=== PATIENT | male | born 1990 | race Caucasian/White ===

== ENCOUNTER 2020-12-25 18:55 | Emergency (ER) | payer OTHER ==
[2020-12-25 20:35] LABS: Absolute Lymphocytes (CBC) 2.5 K/uL (0.7-4.9); Basophils % 0.5 % (0-1.3); Hematocrit 46.2 % (39.6-49.0); Lymphocytes % 36.9 % (15.3-44.8); MPV 6.8 fL (7.6-11.3); RBC Red Blood Cell Count 5.52 M/uL (4.33-5.43)
[2020-12-25 20:44] LABS: Protime INR 1.03
[2020-12-25 20:55] LABS: ALT/SGPT 43 U/L (12-78); AST/SGOT 20 U/L (15-37); Albumin 4.5 g/dL (3.4-5.0); Alkaline Phosphatase 54 U/L (45-117); BUN Blood Urea Nitrogen 10 mg/dL (7-18); Bicarbonate 29 mmol/L (21-32); Bilirubin Direct < 0.1 mg/dL (0-0.2); Bilirubin Total 0.4 mg/dL (0.2-1.0); Glucose Level 101 mg/dL (74-106); Potassium 4.1 mmol/L (3.5-5.1); Protein, Total 8.5 g/dL (6.4-8.2); Sodium Level 141 mmol/L (136-145)
[2020-12-25 21:22] LABS: Urine Blood Negative (Negative); Urine Glucose Negative (Negative); Urine Protein Negative (Negative); Urine Specific Gravity 1.025 (1.005-1.030); Urine pH 7.5 (5.0-7.0)
[2020-12-25 21:39] LABS: Barbiturates NEGATIVE (NEGATIVE); Benzodiazepines NEGATIVE (NEGATIVE); Cocaine NEGATIVE (NEGATIVE); METHAMPHETAM NEGATIVE (NEGATIVE); Methadone NEGATIVE (NEGATIVE); Opiates NEGATIVE (NEGATIVE); Phencyclidine NEGATIVE (NEGATIVE); THC Cannibis NEGATIVE (NEGATIVE)
--- NOTE | 2020-12-25 22:44 | EDPHYS ---
Physician Documentation [facility] Name: Lincoln Mcmillan Age: 30 yrs Sex: Male : 1990 Arrival Date: 12/25/2020 Time: 18:56 Bed 17 Private MD: ED Physician Jesu Ly HPI: 12/25 19:40 This 30 yrs old Male presents to ER via EMS with complaints of Psych Problem. mh7 19:40 The patient presents to the emergency department with depression, over a relationship, mh7 Issues with mother, Issues with someone at gym, States loss of coping skills. Onset: The symptoms/episode began/occurred 2 month(s) ago. Past psychiatric history: Prior diagnosis: depression, TBI, autism. Past psychiatric history: Psychiatric medications include: Haldol, Risperdal, citalopram, Primary psychiatric physician: the patient has not had a prior suicide gesture, the patient does not have a previous inpatient psychiatric history, the patient's last psychiatric treatment was none. Associated signs and symptoms: Pertinent negatives: abdominal pain, anxiety, chest pain, chills, delusions, fever, hallucinations, headache, homicidal ideation, nausea, night sweats, palpitations, paranoia, shortness of breath, substance abuse, suicide ideation, tremor, vomiting. Severity of symptoms: At their worst the symptoms were moderate 7 day(s) ago, in the emergency department the symptoms are unchanged. Patient states that he has had a decrease in coping skills when dealing with his mother and a woman at his gym who constantly tells him things that he is doing wrong. He reports some intermittent depression of the last 3 months. He denies any suicidal or homicidal ideation. He denies any auditory or visual hallucinations. He reports sleeping only a few hours per night over the last few weeks.. Historical: - Allergies: 19:08 No Known Allergies; ss - PMHx: 19:08 TBI; "autistic tendencies"; ss - PSHx: 19:08 L ankle; ss - Immunization history:: Client reports receiving the 2nd dose of the Covid vaccine. - Social history:: Smoking status: Patient denies any tobacco usage or history of. Patient/guardian denies using alcohol, street drugs. ROS: 19:40 Constitutional: Negative for fever, chills, and weight loss, Eyes: Negative for injury, mh7 pain, redness, and discharge, ENT: Negative for injury, pain, and discharge, Neck: Negative for injury, pain, and swelling, Cardiovascular: Negative for chest pain, palpitations, and edema, Respiratory: Negative for shortness of breath, cough, wheezing, and pleuritic chest pain, Abdomen/GI: Negative for abdominal pain, nausea, vomiting, diarrhea, and constipation, Back: Negative for injury and pain, : Negative for injury, bleeding, discharge, and swelling, MS/Extremity: Negative for injury and deformity, Skin: Negative for injury, rash, and discoloration, Neuro: Negative for headache, weakness, numbness, tingling, and seizure, Allergy/Immunology: Negative for hives, rash, and allergies, Endocrine: Negative for neck swelling, polydipsia, polyuria, polyphagia, and marked weight changes, Hematologic/Lymphatic: Negative for swollen nodes, abnormal bleeding, and unusual bruising. Exam: 19:40 Constitutional: This is a well developed, well nourished patient who is awake, alert, mh7 and in no acute distress. Head/Face: Normocephalic, atraumatic. Eyes: Pupils equal round and reactive to light, extra-ocular motions intact. Lids and lashes normal. Conjunctiva and sclera are non-icteric and not injected. Cornea within normal limits. Periorbital areas with no swelling, redness, or edema. Neck: Trachea midline, no thyromegaly or masses palpated, and no cervical lymphadenopathy. Supple, full range of motion without nuchal rigidity, or vertebral point tenderness. No Meningismus. Chest/axilla: Normal chest wall appearance and motion. Nontender with no deformity. No lesions are appreciated. Cardiovascular: Regular rate and rhythm with a normal S1 and S2. No gallops, murmurs, or rubs. Normal PMI, no JVD. No pulse deficits. Respiratory: Lungs have equal breath sounds bilaterally, clear to auscultation and percussion. No rales, rhonchi or wheezes noted. No increased work of breathing, no retractions or nasal flaring. Abdomen/GI: Soft, non-tender, with normal bowel sounds. No distension or tympany. No guarding or rebound. No evidence of tenderness throughout. Back: No spinal tenderness. No costovertebral tenderness. Full range of motion. Skin: Warm, dry with normal turgor. Normal color with no rashes, no lesions, and no evidence of cellulitis. MS/ Extremity: Pulses equal, no cyanosis. Neurovascular intact. Full, normal range of motion. Neuro: Awake and alert, GCS 15, oriented to person, place, time, and situation. Cranial nerves II-XII grossly intact. Motor strength 5/5 in all extremities. Sensory grossly intact. Cerebellar exam normal. Normal gait. 19:40 Psych: Behavior/mood is depressed, Affect is calm, Oriented to person, place, time, Patient has no thoughts/intents to harm self or others. Judgement / Insight is normal. Memory is normal. Delusions/hallucinations are not present. Vital Signs: 19:40 BP 124 / 86; Pulse 85; Resp 20; Temp 97.6; Pulse Ox 97% on R/A; Pain 0/10; dc2 20:45 BP 144 / 79; Pulse 77; Resp 17; Pulse Ox 99% on R/A; Pain 0/10; dc2 22:40 BP 119 / 76; Pulse 74; Resp 17; Pulse Ox 98% ; Pain 0/10; dc2 22:40 BP 129 / 82; Pulse 75; Resp 18; Temp 97.2; Pulse Ox 97% on R/A; Pain 0/10; dc2 Les Coma Score: 19:40 Eye Response: spontaneous(4). Verbal Response: oriented(5). Motor Response: obeys dc2 commands(6). Total: 15. MDM: 22:42 Differential diagnosis: depression, Substance abuse, adjustment disorder. Data [facility] reviewed: vital signs, nurses notes, lab test result(s), CBC, drug level(s), electrolytes, urinalysis, urine drug screen, EKG. Data interpreted: Pulse oximetry: on room air is 97 %. Interpretation: normal. Counseling: I had a detailed discussion with the patient and/or guardian regarding: the historical points, exam findings, and any diagnostic results supporting the discharge/admit diagnosis, lab results, the need for outpatient follow up, a psychiatrist, to return to the emergency department if symptoms worsen or persist or if there are any questions or concerns that arise at home. Response to treatment: the patient's symptoms have markedly improved after treatment. 22:44 Patient medically screened. [facility] 12/25 19:57 Order name: Acetaminophen; Complete Time: 21:40 7 12/25 19:57 Order name: Basic Metabolic Panel; Complete Time: 21:40 [facility] 12/25 19:57 Order name: CBC with Diff; Complete Time: 21:40 12/25 19:57 Order name: ETOH Level; Complete Time: 21:40 7 12/25 19:57 Order name: Hepatic Function; Complete Time: 21:40 [facility] 12/25 19:57 Order name: PT-INR; Complete Time: 21:40 [facility] 12/25 19:57 Order name: Ptt, Activated; Complete Time: 21:40 [facility] 12/25 19:57 Order name: Salicylate; Complete Time: 21:40 [facility] 12/25 19:57 Order name: Urine Drug Screen; Complete Time: 21:40 12/25 19:57 Order name: EKG; Complete Time: 19:59 [facility] 12/25 19:57 Order name: EKG - Nurse/Tech; Complete Time: 21:26 [facility] 12/25 19:57 Order name: IV Saline Lock; Complete Time: 21:15 [facility] 12/25 19:57 Order name: Labs collected and sent; Complete Time: 21:15 [facility] 12/25 21:21 Order name: Urine Dipstick-Ancillary; Complete Time: 21:40 [facility] 12/25 19:57 Order name: Urine Dipstick-Ancillary (obtain specimen); Complete Time: 22:31 [facility] Administered Medications: No medications were administered Disposition Summary: 12/25/20 22:44 Discharge Ordered Location: Home [facility] Problem: an ongoing problem [facility] Symptoms: have improved [facility] Condition: Stable [facility] Diagnosis - Depression [facility] Followup: [facility] - With: Private Physician - When: 1 - 2 days - Reason: Worsening of condition, Recheck today's complaints, Continuance of care, Re-evaluation by your physician Followup: [facility] - With: Ian Deng MD - When: 2 - 3 days - Reason: Worsening of condition, Recheck today's complaints Discharge Instructions: - Discharge Summary Sheet [facility] - Managing Depression, Adult [facility] Forms: - Medication Reconciliation Form [facility] - Thank You Letter 7 - Antibiotic Education [facility] - Prescription Opioid Use [facility] Signatures: Dispatcher [employer] EDKellee Huitron, PEE RN ss Jesu Ly, MD GREGORY mh7
--- NOTE | 2020-12-25 22:44 | ER ---
Nurse's Notes [facility] Name: Lincoln Mcmillan Age: 30 yrs Sex: Male : 1990 Arrival Date: 12/25/2020 Time: 18:56 Bed 17 Private MD: Diagnosis: Depression Presentation: 12/25 19:04 Chief complaint: EMS states: Called out to counseling center for upset individual. Pt ss states that he needs a break from his mother. Denies SI/HI at this time. States that he just wants to get help because he is unable to cope with day to day things. Pt states that it is not his mother's fault, her voice sometimes aggravates him. Coronavirus screen: Client denies travel out of the [place] in the last 14 days. Ebola Screen: Patient denies exposure to infectious person. Patient denies travel to an Ebola-affected area in the 21 days before illness onset. Ebola Screen: Patient denies exposure to infectious person. Patient denies travel to an Ebola-affected area in the 21 days before illness onset. Initial Sepsis Screen: Does the patient meet any 2 criteria? No. Patient's initial sepsis screen is negative. Does the patient have a suspected source of infection? No. Patient's initial sepsis screen is negative. Risk Assessment: Do you want to hurt yourself or someone else? Patient reports no desire to harm self or others. Onset of symptoms was December 25, 2020. 19:04 Method Of Arrival: EMS: [facility] 19:04 Acuity: SPRING 3 ss Historical: - Allergies: 19:08 No Known Allergies; ss - PMHx: 19:08 TBI; "autistic tendencies"; ss - PSHx: 19:08 L ankle; ss - Immunization history:: Client reports receiving the 2nd dose of the Covid vaccine. - Social history:: Smoking status: Patient denies any tobacco usage or history of. Patient/guardian denies using alcohol, street drugs. Screenin:40 Abuse screen: Denies threats or abuse. Denies injuries from another. Nutritional dc2 screening: No deficits noted. Tuberculosis screening: No symptoms or risk factors identified. Never had TB. Possible symptoms: None Risk factors: None. Fall Risk None identified. No fall in past 12 months (0 pts). No secondary diagnosis (0 pts). No IV (0 pts). Ambulatory Aid- None/Bed Rest/Nurse Assist (0 pts). Gait- Normal/Bed Rest/Wheelchair (0 pts) Mental Status- Oriented to own ability (0 pts). Total Edwards Fall Scale indicates No Risk (0-24 pts). Assessment: 19:10 Reassessment: 4 self inflicted superficial abrasions noted to L forearm. ss 19:40 Reassessment: Patient and/or family updated on plan of care and expected duration. Pain dc2 level reassessed. General: Appears in no apparent distress. well groomed, well developed, Behavior is calm, cooperative, Smells of Reports Pt is here because of losing coping skills that began about 3 months ago. has not slept in days .Denies pain. Pain: Denies pain. Neuro: No deficits noted. Respiratory: No deficits noted. GI: No deficits noted. Musculoskeletal: No deficits noted. 19:40 Derm: several superficial cuts to left forearm, no bleeding or redness. Pt stated he dc2 cut himself today . Denies SI or HI . Denies hallucinations. 20:40 Reassessment: No changes from previously documented assessment. dc2 21:40 Reassessment: No changes from previously documented assessment. Patient and/or family dc2 updated on plan of care and expected duration. Pain level reassessed. Patient denies pain at this time. 22:00 Reassessment: Patient appears in no apparent distress at this time. No changes from dc2 previously documented assessment. Patient and/or family updated on plan of care and expected duration. Pain level reassessed. 22:35 Reassessment: Reassessment: Pt speak to someone with psychiatry. has a number dc2 and is ready to leave the hosptital. Dr. Ly made aware. Psych: 19:51 [place] Suicide Severity Screening: In the past month, have you wished you were dc2 or wished you could go to sleep and not wake up? Patient responds "No." "In the past month, have you actually had any thoughts of killing yourself?" Patient responds "no." "In your lifetime, have you ever done anything, started to do anything, or prepared to do anything to end your life?" Patient responds "no.". Subjective: Patient's mood is calm cooperative and talkative. Objective: Patient is cooperative, Speech is normal. Interventions: Room cleared of all equipment and tubings. Safety Checks: Personal items have been removed. Door is open. Pt denies substance abuse. Commitment: Patient will be a voluntary commitment. Vital Signs: 19:40 BP 124 / 86; Pulse 85; Resp 20; Temp 97.6; Pulse Ox 97% on R/A; Pain 0/10; dc2 20:45 BP 144 / 79; Pulse 77; Resp 17; Pulse Ox 99% on R/A; Pain 0/10; dc2 22:40 BP 119 / 76; Pulse 74; Resp 17; Pulse Ox 98% ; Pain 0/10; dc2 22:40 BP 129 / 82; Pulse 75; Resp 18; Temp 97.2; Pulse Ox 97% on R/A; Pain 0/10; dc2 Les Coma Score: 19:40 Eye Response: spontaneous(4). Verbal Response: oriented(5). Motor Response: obeys dc2 commands(6). Total: 15. ED Course: 18:56 Patient arrived in ED. ss 19:08 Triage completed. ss 19:08 Jesu Ly MD is Attending Physician. [facility] 19:08 Arm band placed on left wrist. ss 19:51 Patient has correct armband on for positive identification. Bed in low position. Call dc2 light in reach. Side rails up X 1. Pulse ox on. NIBP on. Pt in front of nurses desk and can be observed. Pt denies Si or HI. Lights dimmed. 20:15 Initial lab(s) drawn, by me, sent to lab. dc2 21:15 Mae Todd RN is Primary Nurse. dc2 22:16 called [facility] Crisis Line spoke to Radha to have a screener evaluate the patient. mw2 22:40 No provider procedures requiring assistance completed. dc2 22:43 Ian Deng MD is Referral Physician. mh7 22:45 Patient did not have IV access during this emergency room visit. dc2 Administered Medications: No medications were administered Outcome: 22:44 Discharge ordered by . 7 22:45 Discharged to home dc2 22:45 Condition: stable 22:45 Discharge instructions given to patient, Instructed on follow up and referral plans. Demonstrated understanding of instructions, follow-up care, Pt has number for psychiatry to follow up with. States he will call when he arrives home. States mom is coming to the hospital to apple picking supervisor to bring home. Pt in nad. Steady gait out of the ed . 23:13 Patient left the ED. joselyn Signatures: Kellee Hodge RN RN Mercedes Price RN RN Jose Luis Lyons mw2 Jesu Ly MD MD mh7 Mae Todd RN RN dc2 Corrections: (The following items were deleted from the chart) 19:00 18:56 Chief complaint: ss ss
[2020-12-25 23:31] VITALS: BP 124/86; TEMP 97.6; O2SAT 97
== END 2020-12-25 23:13 | disposition home or self-care (01) ==
LOC: ER 18:55
DX: F32.9 Major depressive disorder, single episode, unspecified (principal); Z87.820 Personal history of traumatic brain injury
CPT/HCPCS: 36415; 80048; 80076; 80307; 80320; 80329; 81003; 85025; 85610; 85730; 99284